=== PATIENT | male | born 1985 | race Caucasian/White ===

== ENCOUNTER 2020-01-23 20:34 | Observation (INO) | payer OTHER, BC, SELFPAY ==
[2020-01-23] VITALS (11 sets, daily range): BP systolic 133–168; BP diastolic 75–96; PULSE 85–93; RESP 14–20; TEMP 36.6–37.4; O2SAT 89–98; BMI 32.8
[2020-01-23] MEDS: fentaNYL 50 mcg/mL INJ 2mL 200 MCG IVP (21:01)
--- NOTE | 2020-01-23 21:25 | W.ED.TRAUMA ---
HPI - Trauma General: Chief Complaint: Trauma Stated Complaint: RT FOOT LACERATION Time Seen by Provider: 01/23/20 21:21 History of Present Illness: MD complaint: injury Onset (ago): hour(s) Loss of Consciousness: no Location - Extremities: Right: foot Severity: moderate Associated symptoms: Reports dizziness and nausea; Denies abdominal pain, chest pain, chills, confusion, fever(s), headache(s) or vomiting Review of Systems Const: Denies: fever(s) or chills Card: Denies: chest pain or palpitations Resp: Denies: dyspnea GI: Reports: nausea; Denies: abdominal pain, vomiting or hematemesis Neuro: Reports: dizziness; Denies: headache(s) or confusion Physical Exam Const: GENERAL APPEARANCE: well developed ORIENTATION/CONSCIOUSNESS: Yes oriented to person, Yes oriented to place and Yes oriented to time HENMT: COMMON NORMALS: normocephalic, external ears normal and Normal external nose present HEAD & SCALP: normocephalic; no scalp tenderness FACE & SINUS: normal facial exam NOSE: Normal external nose present and No nasal discharge present EXTERNAL EAR: Yes external ears normal Eye: COMMON NORMALS: Equal, round and reactive pupils present, EOMs intact bilaterally and conjunctivae normal EYELID: eyelids normal CONJUNCTIVA: Yes conjunctivae normal PUPIL: Yes Equal, round and reactive pupils present Neck/C-Spine: GENERAL: No tracheal deviation Chest: COMMONS NORMALS: normal inspection of the chest CHEST: No tenderness Resp: COMMON NORMALS: clear to auscultation bilaterally EFFORT & INSPECTION: No tachypneic, No respiratory distress, No retractions, No uses accessory muscles and No tracheal deviation AUSCULTATION: clear to auscultation bilaterally, no rhonchi, no wheezes and lung sounds not diminished Cardio: COMMON NORMALS: regular rate and regular rhythm RATE: regular rate RHYTHM: regular rhythm HEART SOUNDS: no murmurs PERIPHERAL PULSES: radial pulses present GI: INSPECTION: No abdominal distension AUSCULTATION: No Hyperactive bowel sounds present and No Hypoactive bowel sounds present PALPATION: No Guarding due to palpation present (GI) and No Rigid due to palpation PERCUSSION: no dullness to percussion and no tympanic to percussion Extremity: NARRATIVE EXTREMITY EXAM: Right foot dorsum. 6 cm laceration, deep. Tourniquet in place to the calf. Pressure dressing removed with continued bleeding. Attempt at lower tourniquet placement with a blood pressure cuff at the ankle failed in the ER. Direct pressure stopped bleeding. There is no foot deformity. 1 attempt at time vessel off was made, and failed. Neuro: SENSORIUM/ORIENTATION: Yes oriented to person, Yes oriented to place and Yes oriented to time Psych: COMMON NORMALS: mental status grossly normal Skin: COMMON NORMALS: no rashes or lesions noted GENERAL SKIN EXAM: no rashes or lesions noted MDM - Trauma MDM Narrative: Medical decision making narrative: What appears to be pulsatile hemorrhage only abated with direct pressure. Tourniquet is let down, cuff deflated. Consulted chest/vascular surgery. He is willing to take to the OR. The patient is hemodynamically stable. Hemoglobin is 14. X-ray reveals a second metatarsal fracture that is oblique. Obviously will be treated as an open fracture. Orthopedics is aware. Blood is typed. Admitted direct to the OR Lab Data: Labs: Lab Results 01/23/20 01/23/20 01/23/20 Range/Units 21:30 21:30 21:30 WBC 14.6 H (4.0-10.0) 10^3/ uL RBC 4.45 (4.1-5.3) 10^6/u L Hgb 14.1 (11.7-16.6) g/dL Hct 40.9 L (42.0-52.0) % MCV 91.9 (80-94) fL MCH 31.7 (28.0-34.0) pg MCHC 34.5 (30.0-36.0) g/dL RDW 11.1 L (12.1-15.1) % Plt Count 229 (130-400) 10^3/c mm MPV 10.3 (7.4-10.4) fL Neut % (Auto) 76.7 % Lymph % (Auto) 14.1 % Cocke % (Auto) 8.0 % Eos % (Auto) 0.4 % Baso % (Auto) 0.2 % Neut # (Auto) 11.18 H (1.8-7.7) 10^3/u L Lymph # (Auto) 2.1 (0.8-4.8) 10^3/u L Cocke # (Auto) 1.2 H (0.2-0.9) 10^3/u L Eos # (Auto) 0.1 (0.0-0.8) 10^3/u L Baso # (Auto) 0.0 (0.0-0.1) 10^3/u L Nucleated RBC % (a uto) 0 % Nucleated RBCs # 0.0 /100WBC PT 12.80 (10.5-13.3) SECO NDS INR 0.94 (0.8-1.2) Sodium (136-145) mmol/L Potassium (3.5-5.1) mmol/L Chloride (98-107) mmol/L Carbon Dioxide (22-29) mmol/L Anion Gap (5-19) BUN (6-20) mg/dL Creatinine (0.7-1.2) mg/dL GFR Calculation (90-130) mL/min Glucose (65-115) mg/dL Calculated Osmolal ity (285-295) mOsm/k g Calcium (8.5-10.5) mg/dL Total Bilirubin (0.15-1.2) mg/dL AST (0-40) U/L ALT (0-41) U/L Alkaline Phosphata se (40-130) IU/L Total Protein (6.6-8.7) g/dL Albumin (3.5-5.2) g/dL Globulin (1.3-4.6) g/dL Blood Type B Positive Rho(D) Type Positive Antibody Screen Negative 01/23/20 Range/Units 21:30 WBC (4.0-10.0) 10^3/ uL RBC (4.1-5.3) 10^6/u L Hgb (11.7-16.6) g/dL Hct (42.0-52.0) % MCV (80-94) fL MCH (28.0-34.0) pg MCHC (30.0-36.0) g/dL RDW (12.1-15.1) % Plt Count (130-400) 10^3/c mm MPV (7.4-10.4) fL Neut % (Auto) % Lymph % (Auto) % Cocke % (Auto) % Eos % (Auto) % Baso % (Auto) % Neut # (Auto) (1.8-7.7) 10^3/u L Lymph # (Auto) (0.8-4.8) 10^3/u L Cocke # (Auto) (0.2-0.9) 10^3/u L Eos # (Auto) (0.0-0.8) 10^3/u L Baso # (Auto) (0.0-0.1) 10^3/u L Nucleated RBC % (a uto) % Nucleated RBCs # /100WBC PT (10.5-13.3) SECO NDS INR (0.8-1.2) Sodium 140 (136-145) mmol/L Potassium 3.5 (3.5-5.1) mmol/L Chloride 104 (98-107) mmol/L Carbon Dioxide 23 (22-29) mmol/L Anion Gap 16.5 (5-19) BUN 11 (6-20) mg/dL Creatinine 0.8 (0.7-1.2) mg/dL GFR Calculation 110.0 (90-130) mL/min Glucose 127 H (65-115) mg/dL Calculated Osmolal ity 288 (285-295) mOsm/k g Calcium 9.2 (8.5-10.5) mg/dL Total Bilirubin 0.2 (0.15-1.2) mg/dL AST 24 (0-40) U/L ALT 20 (0-41) U/L Alkaline Phosphata se 75 (40-130) IU/L Total Protein 7.0 (6.6-8.7) g/dL Albumin 4.7 (3.5-5.2) g/dL Globulin 2.3 (1.3-4.6) g/dL Blood Type Rho(D) Type Antibody Screen Discharge Plan Discharge Discharge Date/Time: 01/23/20 22:37 Coding Level of Care Code ED Asset Management Lead for Alin Melo
[2020-01-23] MEDS: sodium chloride 0.9% 1,000 ML 999 ML IV (21:28)
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
[2020-01-23 21:37] LABS: Basophils % 0.2 %; Eosinophils # 0.1 10^3/uL (0.0-0.8); Eosinophils % 0.4 %; Hematocrit 40.9 % (42.0-52.0); Hemoglobin 14.1 g/dL (11.7-16.6); Lymphocytes # 2.1 10^3/uL (0.8-4.8); Lymphocytes % 14.1 %; Mean Corpuscular HGB Conc 34.5 g/dL (30.0-36.0); Mean Corpuscular Hemoglobin 31.7 pg (28.0-34.0); Mean Corpuscular Volume 91.9 fL (80-94); Mean Platelet Volume 10.3 fL (7.4-10.4); Monocytes # 1.2 10^3/uL (0.2-0.9); Neutrophils # 11.18 10^3/uL (1.8-7.7); Neutrophils % 76.7 %; Nucleated Red Blood Cells % 0 %; Platelet Count 229 10^3/cmm (130-400); Red Blood Count 4.45 10^6/uL (4.1-5.3); Red Cell Distribution Width 11.1 % (12.1-15.1); White Blood Count 14.6 10^3/uL (4.0-10.0)
[2020-01-23 21:48] LABS: INR 0.94 (0.8-1.2)
[2020-01-23] MEDS: fentaNYL 50 mcg/mL INJ 2mL 100 MCG IVP (21:48)
[2020-01-23 21:57] LABS: Alanine Aminotransferase 20 U/L (0-41); Albumin Level 4.7 g/dL (3.5-5.2); Alkaline Phosphatase 75 IU/L (40-130); Anion Gap 16.5 (5-19); Aspartate Amino Transferase 24 U/L (0-40); Blood Urea Nitrogen 11 mg/dL (6-20); Calcium 9.2 mg/dL (8.5-10.5); Carbon Dioxide 23 mmol/L (22-29); Chloride 104 mmol/L (98-107); Creatinine Clr Calc Pharmacy 160.0842; Globulin 2.3 g/dL (1.3-4.6); Glucose 127 mg/dL (65-115); Osmolality Calculated 288 mOsm/kg (285-295); Potassium 3.5 mmol/L (3.5-5.1); Sodium 140 mmol/L (136-145); Total Bilirubin 0.2 mg/dL (0.15-1.2)
--- NOTE | 2020-01-23 22:03 | P.ANESASSM_ITS ---
Pre-Anesthetic Assessment Pre-Anesthetic Assessment: Height/Weight: Height 1.8 m Weight 106.594 kg Temp Pulse Resp BP Pulse Ox 98.8 F 85 16 153/96 94 01/23/20 20:37 01/23/20 20:37 01/23/20 21:48 01/23/20 20:37 01/23/20 20:37 Social: Social History: No alcohol and No tobacco Exam: Pre-Anes Outpt Exam: alert, oriented x 3, clear to auscultation bilatera lly and regular rate & rhythm Airway: Submandibular: WNL Cervical ROM: WNL MP: 1 Dentition: Other (teeth good) History/ROS: No significant complaints Anesthetic Plan: ASA status: 1E Anesthesia: Anesthesia Evaluation and General Risk of > 500 ml blood loss (7ml/kg in children): No Meds/Allergies Current Medications: Current Medications Generic Name Dose Route Start Last Admin Trade Name Freq PRN Reason Stop Dose Admin Sodium Chloride 1,000 mls @ 999 m ls/hr 01/23/20 21:25 01/23/20 21:28 Sodium Chloride 0.9% IV 01/23/20 22:25 999 mls/hr .Q1H1M ONE Administration Data Anesthesia CBC & Chem 7: 01/23/20 21:30 01/23/20 21:30 Other Labs: Laboratory Results - last 48 hr 01/23/20 01/23/20 01/23/20 21:30 21:30 21:30 WBC 14.6 H RBC 4.45 Hgb 14.1 Hct 40.9 L MCV 91.9 MCH 31.7 MCHC 34.5 RDW 11.1 L Plt Count 229 MPV 10.3 Neut % (Auto) 76.7 Lymph % (Auto) 14.1 [place] % (Auto) 8.0 Eos % (Auto) 0.4 Baso % (Auto) 0.2 Neut # (Auto) 11.18 H Lymph # (Auto) 2.1 [place] # (Auto) 1.2 H Eos # (Auto) 0.1 Baso # (Auto) 0.0 Nucleated RBC % (auto) 0 Nucleated RBCs # 0.0 PT 12.80 INR 0.94 Sodium 140 Potassium 3.5 Chloride 104 Carbon Dioxide 23 Anion Gap 16.5 BUN 11 Creatinine 0.8 GFR Calculation 110.0 Glucose 127 H Calculated Osmolality 288 Calcium 9.2 Total Bilirubin 0.2 AST 24 ALT 20 Alkaline Phosphatase 75 Total Protein 7.0 Albumin 4.7 Globulin 2.3 Cardiac Studies: No Data to Display
--- NOTE | 2020-01-23 22:13 | PC.NURSE ---
pt presented with laceration to R. Dorsal. bleeding was slightly controled when EMS arrived. pt has CAT turniquet in place on arrival. applied at approx 1945. pt had delayed cap refill, and numbness. pain to manipulation. lac is approx 5cm long by 2 cm wide. difficulty controlling bleeding. direct pressure slows bleeding significantly. pts pain is a 10/10 when laceration is manipulated. 5/10 at rest.
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
[2020-01-23] MEDS: vancomycin 1,000 MG SDV 1000 MG XX (22:45)
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
[2020-01-23] MEDS: fentaNYL 50 mcg/mL INJ 2mL IVP ×2 (23:45→23:50)
[2020-01-24] VITALS (9 sets, daily range): BP systolic 114–144; BP diastolic 69–92; PULSE 77–88; RESP 14–17; TEMP 36.4–37; O2SAT 97–99
[2020-01-24] MEDS: ceFAZolin 1,000 MG in sodium chloride 0.9% (plus) 50 ML 100 MG IV ×2 (00:37→08:14)
[2020-01-24] MEDS: HYDROcodone-acetaminophen 7.5-325 mg Tablet PO ×2 (05:47→10:25)
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
[2020-01-24] MEDS: sulfamethoxazole-trimeth DS 160-800 mg Tablet 1 TAB PO (08:14)
== END 2020-01-24 10:28 | disposition home or self-care (01) ==
LOC: ER 21:21 → OR 22:06 → MEDSURG 23:45
PROVIDERS: Admitting Provider Thoracic Surgery (Cardiothoracic Vascular Surgery); Emergency Provider Emergency Medicine; Visit Provider Thoracic Surgery (Cardiothoracic Vascular Surgery)
PROC: (CPT 35226; principal; 2020-01-23 21:00)
DX: S95.011A Laceration of dorsal artery of right foot, initial encounter (principal); W27.8XXA Contact with other nonpowered hand tool, initial encounter
CPT/HCPCS: 35226; 12345; 73630; 80053; 85025; 85610; 86850; 86900; 96365; 96366; 97161; 99281; G0378; J0330; J0690; J1100; J1885; J2405; J2704; J3010; J3370; J7030